=== PATIENT | female | born 1945 | race Caucasian/White ===

== ENCOUNTER 2017-02-13 11:32 | Outpatient (CLI) | payer MEDICARE ==
--- NOTE | 2017-02-13 13:12 | MRI ---
MRI BRAIN WITHOUT CONTRAST: Date: 02/13/17 HISTORY: Tinnitus of both ears. Vertigo. COMPARISON: None. TECHNIQUE: Brain MRI is performed without intravenous Gadolinium administration. Multisequential, multiplanar i maging is performed. FINDINGS: No hemorrhage on the axial gradient echo sequence. Central arterial flow-voids are maintained. Absent restricted diffusion. No parenchymal mass, mass effect, or midline shift. Brain volume is age-appropriate. Cortical del real-w anderson matter differentiation is preserved. Ventricles and sulci are patent and symmetric. White matter hyperintensities on the axial T2 and FLAIR sequence due to chronic small vessel ischemi c changes are noted. Calvarium has a normal marrow signal intensity. Midline brain parenchymal structures are unremarkabl e. Minimal mucosal thickening of the ethmoid air cells and maxillary sinuses. Adequate mastoid air cell aeration. Visualized internal auditory canals and inner ear structures are unremarkable. IMPRESSION: Unremarkable noncontrast brain MRI. POS: SONYA
== END 2017-02-13 11:33 | disposition home or self-care (01) ==
LOC: MRI 11:32
PROVIDERS: ATTEND Family Medicine
DX: S09.90XA Unspecified injury of head, initial encounter (principal); H91.91 Unspecified hearing loss, right ear; H93.13 Tinnitus, bilateral; R42 Dizziness and giddiness
CPT/HCPCS: 70551

== ENCOUNTER 2021-02-25 08:22 | Outpatient (CLI) | payer MEDICARE | END 2021-02-25 08:23 | disposition home or self-care (01) | LOC: BICMAMMO 08:22 | PROVIDERS: ATTEND Family Medicine | DX: N63.20 Unspecified lump in the left breast, unspecified quadrant (principal); N64.89 Other specified disorders of breast | CPT/HCPCS: 76642 ×2; 77066; G0279 ==

== ENCOUNTER → 2021-03-08 | Day surgery (SDC) | payer MEDICARE | LOC: BICULT 12:23 | PROVIDERS: ATTEND Family Medicine | PROC: 0HBV3ZX Excision of Bilateral Breast, Percutaneous Approach, Diagnostic (ICD-10-PCS; principal; 2021-03-08) | DX: C50.811 Malignant neoplasm of overlapping sites of right female breast (principal); C50.212 Malignant neoplasm of upper-inner quadrant of left female breast | CPT/HCPCS: 19083; 88305; 88341; 88342; 88360 ==

== ENCOUNTER 2021-03-26 15:22 | Outpatient (CLI) | payer MEDICARE ==
[2021-03-26 16:55] LABS: #Basophils 0.1 10x3/uL (0.0-0.2); #Eosinphils 0.3 10x3/uL (0.0-0.5); #Monocytes 0.8 10x3/uL (0.0-1.1); #Neutrophils 3.5 10x3/uL (1.5-8.4); %Basophils 0.7 % (0.0-2.0); %Eosinophils 4.2 % (0.0-6.0); %Lymphocytes 31.4 % (18.0-47.0); %Monocytes 11.7 % (0.0-10.0); %Neutrophils 51.9 % (40.0-75.0); Hemoglobin 12.8 g/dL (12.0-15.5); Mean Corpuscular HGB CONC 32.9 g/dL (32.0-36.0); Mean Corpuscular Hemoglobin 30.3 pg (27.0-33.0); Mean Platelet Volume 11.2 fl (7.4-10.4); Platelet Count 248 10x3/uL (150-450); RBC Distribution Width 13.1 % (11.5-14.5); Red Blood Cell (RBC) Count 4.23 10x6/uL (3.90-5.03); White Blood Cell (WBC) Count 6.7 10x3/uL (3.5-10.5)
[2021-03-26 17:13] LABS: Anion Gap 14 mmol/L (10-20); BUN (Urea Nitrogen) 14 mg/dL (9.8-20.1); Calc. Creatinine Clearance 0 mL/min (70-130); Calcium 9.2 mg/dL (7.8-10.44); Carbon Dioxide 27 mmol/L (23-31); Chloride 101 mmol/L (98-107); Glucose 86 mg/dL (83-110); Potassium 4.1 mmol/L (3.5-5.1); Sodium 138 mmol/L (136-145)
[2021-03-27 14:29] LABS: SARS-CoV-2 PCR by NAA Not Detected (NotDetected)
== END 2021-03-26 15:23 | disposition home or self-care (01) ==
LOC: LABBT 15:22
PROVIDERS: ATTEND Surgery
DX: Z01.818 Encounter for other preprocedural examination (principal); C50.919 Malignant neoplasm of unspecified site of unspecified female breast; Z20.822 Contact with and (suspected) exposure to COVID-19
CPT/HCPCS: 80048; 85025; U0003; U0005; 93005; 93010

== ENCOUNTER 2021-03-30 07:16 | Inpatient (IN) | payer MEDICARE ==
[2021-03-30] MEDS ORDERED: Acetaminophen 500 MG TAB ONE (10:15)
[2021-03-30] MEDS ORDERED: ceFAZolin Sodium (SDC) 2 GM/100 ML BAG ONE (10:15)
[2021-03-30] MEDS ORDERED: Isosulfan Blue 50 MG/5 ML VIAL ONE (11:47)
[2021-03-30] MEDS ORDERED: Bupivacaine 0.25% HCL 30 ML VIAL ONE (11:47)
[2021-03-30] MEDS ORDERED: EPINEPHrine 1 MG/ML AMP ONE (11:47)
[2021-03-30] MEDS ORDERED: Fentanyl 100 MCG/2 ML VIAL ONE ×4 (12:00→20:02)
[2021-03-30] MEDS ORDERED: HYDROmorphone 0.5 MG/0.5 ML SYRINGE ONE ×2 (12:01→15:52)
[2021-03-30] MEDS ORDERED: Midazolam HCl 2 mg/2 ml Vial ONE (12:12)
[2021-03-30] MEDS ORDERED: Rocuronium Bromide 10 MG/ML (10ML VIAL) ONE (12:19)
[2021-03-30] MEDS ORDERED: Lidocaine 1% PF 5 ML VIAL ONE (12:19)
[2021-03-30] MEDS ORDERED: PHENYLEPHRINE-NS 100 MCG/ML 10 ML SYRINGE ONE (12:19)
[2021-03-30] MEDS ORDERED: Ketorolac Tromethamine 30 MG/ML VIAL ONE (12:19)
[2021-03-30] MEDS ORDERED: Dexamethasone 20 MG/5 ML VIAL ONE (12:19)
[2021-03-30] MEDS ORDERED: PROPOFOL 200 MG/20 ML VIAL ONE (12:19)
[2021-03-30] MEDS ORDERED: Ondansetron PF 4 MG/2 ML Vial ONE (12:19)
[2021-03-30] MEDS ORDERED: ePHEDrine 50 MG/ML VIAL ONE (12:19)
[2021-03-30] MEDS ORDERED: Glycopyrrolate 0.2 MG/ML 5 ML SYRINGE ONE (12:19)
[2021-03-30] MEDS ORDERED: Dextrose 50% Abboject 50 ML SYRINGE SLOW IVP PRN (18:21)
[2021-03-30] MEDS ORDERED: hydrALAZINE 20 MG/ML VIAL SLOW IVP PRN (18:21)
[2021-03-30] MEDS ORDERED: Promethazine HCl 25 MG/ML VIAL IM PRN (18:21)
[2021-03-30] MEDS ORDERED: Acetaminophen 325 MG TAB PO PRN (18:21)
[2021-03-30] MEDS ORDERED: Dextrose 5% in Water 1,000 ML IV PRN (18:21)
[2021-03-30] MEDS ORDERED: diphenhydrAMINE 25 MG CAP PO PRN (18:25)
[2021-03-30] MEDS ORDERED: Morphine 4 MG/ML VIAL SLOW IVP PRN (19:06)
[2021-03-30] MEDS ORDERED: Fluticasone Propionate Nasal Spray 16 gm Bottle NASAL PRN (19:09)
[2021-03-30 20:46] VITALS: BMI 33.2
[2021-03-30] MEDS: Famotidine 20 MG TAB PO SCH (21:16)
[2021-03-30] MEDS: Docusate 100 MG CAP PO SCH (21:16)
[2021-03-30] MEDS: Atorvastatin Calcium 20 MG TAB PO SCH (21:17)
[2021-03-30] MEDS: HYDROcodone/Acetaminophen 5/325 mg Tablet PO PRN ×2 (21:17→23:49)
[2021-03-30] MEDS: Ondansetron PF 4 MG/2 ML Vial IVP PRN (21:18)
[2021-03-30] MEDS: D5 1/2 NS w/20 mEq KCL 1,000 ML IV SCH (21:18)
[2021-03-31] MEDS: HYDROcodone/Acetaminophen 5/325 mg Tablet PO PRN ×2 (05:18→09:44)
[2021-03-31] MEDS: Levothyroxine 150 MCG TAB PO SCH (05:18)
[2021-03-31 06:12] LABS: #Neutrophils 10.1 thou/uL (1.40-6.50); %Basophils 0.4 % (0.0-1.0); %Eosinophils 0.1 % (0.0-10.0); %Lymphocytes 8.1 % (21.0-51.0); %Monocytes 8.2 % (0.0-10.0); %Neutrophils 83.3 % (42.0-75.0); Hemoglobin 12.6 g/dL (12.0-16.0); Mean Corpuscular HGB CONC 34.1 g/dL (32.0-36.0); Mean Corpuscular Hemoglobin 31.9 pg (27.0-31.0); Mean Corpuscular Volume 93.8 fL (78.0-98.0); Platelet Count 212 thou/uL (130-400); RBC Distribution Width 11.9 % (11.5-14.5); Red Blood Cell (RBC) Count 3.93 mill/uL (4.20-5.40); White Blood Cell (WBC) Count 12.1 thou/uL (4.8-10.8)
[2021-03-31 06:37] LABS: Anion Gap 11 mmol/L (10-20); BUN (Urea Nitrogen) 10 mg/dL (9.8-20.1); Calc. Creatinine Clearance 104 mL/min (70-130); Carbon Dioxide 25 mmol/L (23-31); Chloride 100 mmol/L (98-107); Glucose 155 mg/dL (83-110); Potassium 4.4 mmol/L (3.5-5.1); Sodium 132 mmol/L (136-145)
[2021-03-31] MEDS: Famotidine 20 MG TAB PO SCH ×2 (09:40→20:06)
[2021-03-31] MEDS: Docusate 100 MG CAP PO SCH ×2 (09:40→20:06)
[2021-03-31] MEDS: Valsartan 80 MG TAB PO SCH (09:40)
[2021-03-31] MEDS: Enoxaparin Sodium 40 MG/0.4 ML SYRINGE SC SCH (09:44)
[2021-03-31] MEDS: Ondansetron PF 4 MG/2 ML Vial IVP PRN ×2 (14:22→20:09)
[2021-03-31] MEDS: D5 1/2 NS w/20 mEq KCL 1,000 ML IV SCH (17:59)
[2021-03-31] MEDS: Morphine 4 MG/ML VIAL SLOW IVP PRN (20:06)
[2021-03-31] MEDS: Atorvastatin Calcium 20 MG TAB PO SCH (20:06)
[2021-04-01] MEDS: D5 1/2 NS w/20 mEq KCL 1,000 ML IV SCH ×2 (00:17→05:56)
[2021-04-01] MEDS: Morphine 4 MG/ML VIAL SLOW IVP PRN (00:22)
[2021-04-01] MEDS: Levothyroxine 150 MCG TAB PO SCH (05:56)
[2021-04-01] MEDS: HYDROcodone/Acetaminophen 5/325 mg Tablet PO PRN ×3 (05:59→19:20)
[2021-04-01] MEDS: Enoxaparin Sodium 40 MG/0.4 ML SYRINGE SC SCH (08:54)
[2021-04-01] MEDS: Famotidine 20 MG TAB PO SCH ×2 (08:54→21:43)
[2021-04-01] MEDS: Docusate 100 MG CAP PO SCH ×2 (08:54→21:43)
[2021-04-01] MEDS: Valsartan 80 MG TAB PO SCH (08:54)
[2021-04-01 09:07] LABS: Anion Gap 13 mmol/L (10-20); BUN (Urea Nitrogen) 7 mg/dL (9.8-20.1); Calc. Creatinine Clearance 114 mL/min (70-130); Calcium 8.2 mg/dL (7.8-10.44); Carbon Dioxide 19 mmol/L (23-31); Chloride 94 mmol/L (98-107); Glucose 116 mg/dL (83-110); Potassium 4.9 mmol/L (3.5-5.1); Sodium 121 mmol/L (136-145)
[2021-04-01 11:48] LABS: #Basophils 0.1 thou/uL (0.0-0.2); #Eosinphils 0.2 thou/uL (0.0-0.7); #Lymphocytes 2.4 thou/uL (1.20-3.40); #Monocytes 1.3 thou/uL (0.11-0.59); #Neutrophils 7.1 thou/uL (1.40-6.50); %Basophils 0.5 % (0.0-1.0); %Eosinophils 1.9 % (0.0-10.0); %Monocytes 11.8 % (0.0-10.0); %Neutrophils 63.8 % (42.0-75.0); Hemoglobin 11.6 g/dL (12.0-16.0); Mean Corpuscular HGB CONC 34.2 g/dL (32.0-36.0); Mean Corpuscular Hemoglobin 31.8 pg (27.0-31.0); Mean Platelet Volume 8.3 fL (7.4-10.4); Platelet Count 241 thou/uL (130-400); RBC Distribution Width 11.9 % (11.5-14.5); Red Blood Cell (RBC) Count 3.66 mill/uL (4.20-5.40); White Blood Cell (WBC) Count 11.1 thou/uL (4.8-10.8)
[2021-04-01 19:32] LABS: Anion Gap 11 mmol/L (10-20); BUN (Urea Nitrogen) 7 mg/dL (9.8-20.1); Calc. Creatinine Clearance 93 mL/min (70-130); Calcium 8.7 mg/dL (7.8-10.44); Carbon Dioxide 25 mmol/L (23-31); Chloride 94 mmol/L (98-107); Glucose 139 mg/dL (83-110); Potassium 4.2 mmol/L (3.5-5.1); Sodium 126 mmol/L (136-145)
[2021-04-01] MEDS: Atorvastatin Calcium 20 MG TAB PO SCH (21:43)
[2021-04-01] MEDS: Sodium Chloride 0.9% 1,000 ML IV SCH (23:47)
[2021-04-02 05:08] LABS: Anion Gap 7 mmol/L (10-20); BUN (Urea Nitrogen) 7 mg/dL (9.8-20.1); Calc. Creatinine Clearance 123 mL/min (70-130); Calcium 8.8 mg/dL (7.8-10.44); Carbon Dioxide 31 mmol/L (23-31); Chloride 101 mmol/L (98-107); Glucose 99 mg/dL (83-110); Potassium 4.1 mmol/L (3.5-5.1); Sodium 135 mmol/L (136-145)
[2021-04-02] MEDS: Levothyroxine 150 MCG TAB PO SCH (05:25)
[2021-04-02] MEDS: HYDROcodone/Acetaminophen 5/325 mg Tablet PO PRN ×2 (05:25→09:37)
[2021-04-02] MEDS: Sodium Chloride 0.9% 1,000 ML IV SCH (06:21)
[2021-04-02] MEDS: Valsartan 80 MG TAB PO SCH (08:50)
[2021-04-02] MEDS: Famotidine 20 MG TAB PO SCH (08:50)
[2021-04-02] MEDS: Docusate 100 MG CAP PO SCH (08:50)
[2021-04-02] MEDS: Enoxaparin Sodium 40 MG/0.4 ML SYRINGE SC SCH (08:51)
[2021-04-02 09:07] VITALS: BP 169/87; TEMP 97.9
== END 2021-04-02 10:00 | disposition home or self-care (01) | DRG 580 ==
LOC: SDC 07:16 → SJJU 18:16 → OBSVTOIN 04-01 10:50
PROVIDERS: ADMIT Surgery; ATTEND Surgery
PROC: 07B60ZZ Excision of Left Axillary Lymphatic, Open Approach (ICD-10-PCS; principal; 2021-04-01)
PROC: 0HBV0ZZ Excision of Bilateral Breast, Open Approach (ICD-10-PCS; 2021-04-01)
PROC: 07B50ZZ Excision of Right Axillary Lymphatic, Open Approach (ICD-10-PCS; 2021-04-01)
DX: C50.912 Malignant neoplasm of unspecified site of left female breast (principal); E87.1 Hypo-osmolality and hyponatremia; Z20.822 Contact with and (suspected) exposure to COVID-19; I10 Essential (primary) hypertension; E03.9 Hypothyroidism, unspecified; F41.9 Anxiety disorder, unspecified; C50.911 Malignant neoplasm of unspecified site of right female breast; Z88.2 Allergy status to sulfonamides; Z91.040 Latex allergy status; Z98.51 Tubal ligation status; Z90.49 Acquired absence of other specified parts of digestive tract
CPT/HCPCS: 36415; 36416; 78195; 80048; 83930; 83935; 84300; 85025; 88307; 88309; 88331; 88333; 88342; 93005; 93010; 96372; 96374; 96375; 96376; A9541; C1776; C1889; G0378; J0171; J0360; J0690; J1100; J1170; J1642; J1650; J1885; J2250; J2270; J2405; J2550; J2704; J3010; J3480; J3490; J7050; Q9968; S0020

== ENCOUNTER 2025-03-24 11:54 | Outpatient (CLI) | payer OTHER | END 2025-03-24 11:55 | disposition home or self-care (01) | LOC: SCSRAD 11:54 | PROVIDERS: ATTEND Family Medicine | DX: S86.911A Strain of unspecified muscle(s) and tendon(s) at lower leg level, right leg, initial encounter (principal); M25.461 Effusion, right knee ==